=== PATIENT | male | born 1990 | race Caucasian/White ===

== ENCOUNTER 2016-10-28 11:57 | Emergency (ER) | payer BC ==
[~2016-10-28] VITALS: Ht 182.9 cm; Wt 93.0 kg
[2016-10-28 12:23] VITALS: BP 148/95
[2016-10-28] MEDS ORDERED: NKM (12:24)
--- NOTE | 2016-10-28 12:36 | Emergency Room Report ---
History of Present Illness General Chief Complaint: Upper Respiratory Illness Source: Patient Present Illness HPI 26-year-old male presents emergency department complaining of nasal congestion, dry cough with increased phlegm in the throat x5 days. Patient denies fevers or chills. Patient reports generalized body aches denies neck pain or stiffness. Patient states he has not had his flu vaccination this year. Patient denies recent travel reports to [facility] as his friend had similar symptoms and he believes he picked up a cold from his friend. he also reports exacerbation of his eczema in the bilateral upper extremities and request medication refill for his triamcinolone cream. Patient reports 2 episodes of nausea vomiting and one episode of loose stool. Patient denies blood in the vomit or stool. Patient states he is not currently experiencing nausea or vomiting anymore. Patient denies abdominal pain. Patient denies rashes. Denies CP, Palpitations, LOC, AMS, dizziness, Changes in Vision, Sensation, paresthesias, or a sudden severe headache. Allergies: Coded Allergies: No Known Allergies (Unverified , 10/28/16) Patient History Past Medical History: see triage record Past Surgical History: none Pertinent Family History: none Immunizations: UTD Reviewed Nursing Documentation: PMH: Agreed, PSxH: Agreed Nursing Documentation-PMH Hx Asthma: Yes Review of Systems All Other Systems: negative except mentioned in HPI Physical Exam Vital Signs Date Time Temp Pulse Resp B/P Pulse Ox O2 Delivery O2 Flow Rate FiO2 10/28/16 12:20 98.4 97 20 148/95 95 Room Air Sp02 EP Interpretation: reviewed, normal General Appearance: no apparent distress, alert, GCS 15, non-toxic Head: normocephalic, atraumatic Eyes: bilateral eye PERRL, bilateral eye normal inspection ENT: hearing grossly normal, normal pharynx, no angioedema, normal voice, TMs + canals normal, uvula midline, nasal congestion, pharyngeal erythema, other - No tonsillar exudates noted on physical exam. Neck: full range of motion, no meningismus, no bony tend, supple/symm/no masses Respiratory: chest non-tender, lungs clear, normal breath sounds, no rhonchi, no wheezing, speaking full sentences Cardiovascular #1: regular rate, rhythm, no edema Gastrointestinal: normal bowel sounds, non tender, soft, no guarding, no rebound Rectal: deferred Genitourinary: normal inspection, no CVA tenderness Musculoskeletal: back normal, gait/station normal, normal range of motion, non- tender, no calf tenderness Neurologic: alert, oriented x3, responsive, motor strength/tone normal, sensory intact, speech normal Psychiatric: judgement/insight normal, memory normal, mood/affect normal, no suicidal/homicidal ideation Skin: normal color, warm/dry, well hydrated, rash - Dry, enzymatic type lesions noted in the bilateral antecubital areas as well as the dorsum of the right hand about the knuckles. No Evidence of secondary infection Lymphatic: no adenopathy Medical Decision Making PA Attestation Dr. guzman is my supervising Physician whom patient management has been discussed with. Diagnostic Impression: Primary Impression: Upper respiratory infection Qualified Codes: J06.9 - Acute upper respiratory infection, unspecified; B97.89 - Other viral agents as the cause of diseases classified elsewhere Additional Impression: Eczema Qualified Codes: L20.82 - Flexural eczema ER Course Pt. presents to the ED c/o cough, nasal congestion, intermittent generalized body-aches, x5 days . -Patient also reports exacerbation of his eczema and requires medication refill of triamcinolone cream -Denies fevers, chills or neck stiffness Ddx considered but are not limited to URI, pneumonia, PE, strep pharyngitis, meningitis. Vital signs: Pt. is afebrile, the remaining VS are WNL H&PE are most consistent with URI- no meningeal signs, oropharynx is not involved, no evidence of bacterial infection at this time. ORDERS: none required at this time, the diagnosis is clinical ED INTERVENTIONS: None required at this time. DISCHARGE: At this time pt. is stable for d/c to home. Will provide printed patient care instructions, and any necessary prescriptions. Care plan and follow up instructions have been discussed with the patient prior to discharge. Last Vital Signs Date Time Temp Pulse Resp B/P Pulse Ox O2 Delivery O2 Flow Rate FiO2 10/28/16 12:20 98.4 97 20 148/95 95 Room Air Disposition: HOME, SELF-CARE Condition: Stable Scripts Triamcinolone Acet (Triamcinolone Acetonide) 15 Gm Cream..g. 1 APPLIC APPLIC BID, #15 GM 3 Refills Prov: Emilee Hand 10/28/16 Guaifenesin (Guaifenesin) 1,200 Mg Tab.er.12h 1200 MG PO Q12HR for 5 Days, #10 TAB Prov: Emilee Hand 10/28/16 Pseudoephedrine Hcl* (NEXAFED*) 30 Mg Tablet 30 MG ORAL Q6H Y for congestion for 4 Days, #20 TAB Prov: Emilee Hand 10/28/16 Codeine/Promethazine Hcl* (PROMETHAZINE-CODEINE SYRUP*) 118 Ml Syrup 5 ML ORAL Q6H Y for For Cough, #118 ML 0 Refills Prov: Emilee Hand 10/28/16 Patient Instructions: Eczema, Upper Respiratory Infection, Adult Additional Instructions: Take medications as directed. Follow up with PCP in 3-5 days Return sooner to ED if new symptoms occur, or current symptoms become worse. Do not drink alcohol, drive, or operate heavy machinery while taking cough syrup as this may cause drowsiness. Emilee Hand Oct 28, 2016 12:36
[2016-10-28] MEDS ORDERED: KENALOG 0.5% CR15 GM APPLIC (12:46)
[2016-10-28] MEDS ORDERED: GUAIFENESIN1200 MG PO (12:46)
[2016-10-28] MEDS ORDERED: PROMETHAZINE-C118 M1 ORAL (12:46)
[2016-10-28] MEDS ORDERED: NEXAFED30 MG ORAL (12:46)
[2016-10-28 13:08] VITALS: BP 124/82
== END 2016-10-28 13:10 | disposition home or self-care (01) ==
LOC: EMR 12:48
DX: J06.9 Acute upper respiratory infection, unspecified (principal); L20.82 Flexural eczema
CPT/HCPCS: 99284